=== PATIENT | female | born 1950 | race Caucasian/White ===

== ENCOUNTER 2018-07-13 07:04 | Inpatient (IN) ==
--- NOTE | 2018-07-13 07:15 | Emergency Department Note ---
Disposition Clinical Impression: Endometrial cancer Sepsis Qualifiers: Sepsis type: sepsis due to unspecified organism Qualified Code(s): A41.9 - Sepsis, unspecified organism UTI (urinary tract infection) Qualifiers: Urinary tract infection type: acute cystitis Hematuria presence: without h ematuria Qualified Code(s): N30.00 - Acute cystitis without hematuria Disposition: Admitted As Inpatient Condition: Fair Referrals: Ant Shaffer DO [Primary Care Provider] - Forms: ED Satisfaction Letter Time of Disposition: 09:45 General Adult HPI - General Chief complaint: ED Shortness of Breath/Dyspnea Stated complaint: FRENCH,Fever,UTI,CA pt Time Seen by Provider: 07/13/18 07:14 Source: patient Mode of arrival: wheelchair Limitations: no limitations Nursing Notes Reviewed: Yes Vital Signs Reviewed: Yes - History of Present Illness HPI Narrative: Patient is a 67-year-old female presenting with fever, difficulty breathing and abdominal pain. Patient is currently undergoing chemotherapy with history of radiation therapy for endometrial cancer at [facility], currently being seen as well per Dr. Farmer at [facility]. Over the past 2 days, patient has been having subjective fevers with chills, overnight developed difficulty breathing, seeing as though she felt as if she cannot take a deep breath, no recent cough. She does not wear oxygen at home, no history of COPD or lung disease. Most recent chemotherapy was Friday. Also has been having cramping suprapubic abdominal pain that is intermittent, no exacerbating or alleviating factors. Does have nausea with diarrhea, chronic with treatment and unchanged, she is currently on Zofran for this. Also notes a few days of urinary frequency without dysuria. No hematochezia, vomiting, hematuria, chest pain. Pain Scale: 6 - Related Data Home Medications Medication Instructions Recorded Confirmed Aspirin [Lo-Dose Aspirin EC] 81 mg PO DAILY 08/28/17 06/11/18 Rosuvastatin Calcium [Crestor] 5 mg PO DAILY 08/28/17 06/11/18 Venlafaxine [Effexor] 75 mg PO DAILY 08/28/17 06/11/18 Calcium Carbonate [Calcium] 600 mg PO DAILY 11/03/17 06/11/18 Cholecalciferol (D-3) [Vitamin D] 1,000 unit PO DAILY 11/03/17 06/11/18 Aripiprazole [Abilify] 5 mg PO DAILY 03/27/18 06/11/18 Omeprazole [PriLOSEC] 20 mg PO DAILY 06/11/18 06/11/18 Previous Rx's Medication Instructions Recorded Ibuprofen [Motrin] 600 mg PO Q6HR PRN #40 tab 11/03/17 Ondansetron [Zofran] 8 mg PO Q8HR PRN #60 tablet 04/09/18 Loperamide [Imodium] 2 - 4 mg PO BID PRN #60 capsule 04/15/18 Allergies Allergy/AdvReac Type Severity Reaction Status Date / Time No Known Allergies Allergy Verified 06/11/18 10:05 All systems ED: reviewed and negative except as stated. Review of Systems: As Per HPI Constitutional: Reports: fever, chills ENT ED: Denies: congestion Cardiovascular: Reports: chest pain. Denies: palpitations, dyspnea on exertion, syncope Respiratory: Reports: dyspnea. Denies: cough, wheezes, hemoptysis, sputum production Gastrointestinal: Reports: abdominal pain, nausea, diarrhea. Denies: vomiting, hematemesis, melena, hematochezia Genitourinary: Reports: urgency, frequency. Denies: dysuria, hematuria Musculoskeletal: Denies: back pain Integumentary: Denies: rash Neurological: Denies: headache, weakness, confusion Endocrine: Reports: fatigue Past Medical History - Past Medical History Attestation: Yes The following information was validated with the patient. Source: patient Medical history: Reports: cancer (Endometrial cancer) Psychiatric history: Reports: no psych history - Social History Smoking Status: Never smoker Smokeless Tobacco Status: No Alcohol use: Reports: none Drug use: Reports: none Physical Exam - General Limitations: no limitations General appearance: alert, in no apparent distress - Head Head exam: atraumatic, normocephalic, normal inspection - Eye Eye exam: Present: normal appearance, PERRL, EOMI - ENT ENT exam: normal oropharynx, mucous membranes dry - Neck Neck exam: Present: normal inspection - Chest Chest inspection: Present: normal inspection, symmetric chest wall rise, other (port placement to the right chest, appears well without erythema) - Respiratory Respiratory exam: Present: normal lung sounds bilaterally - Cardiovascular Cardiovascular exam: Present: normal rhythm, tachycardia - Abdominal Exam Abdominal exam: Present: soft, tenderness (Tenderness throughout the suprapubic region, without guarding or rebound, no rigidity) - Extremities Exam Extremities exam: Present: normal inspection, full ROM, normal capillary refill. Absent: tenderness, pedal edema - Expanded Lower Extremity Exam Neurovascular/Tendon exam: Absent: motor deficit, sensory deficit - Neurological Exam Neurological exam: Present: alert, oriented X3 - Psychiatric Psychiatric exam: Present: normal affect, normal mood - Skin Skin exam: Present: warm, dry, intact Course Vital Signs Temperature 99.0 F 07/13/18 07:08 Pulse Rate 115 07/13/18 07:08 Respiratory Rate 22 07/13/18 07:08 Blood Pressure 167/96 07/13/18 07:08 O2 Sat by Pulse Oximetry 97 07/13/18 07:08 Temperature 99.0 F 07/13/18 07:08 Pulse Rate 101 07/13/18 09:37 Respiratory Rate 16 07/13/18 09:37 Blood Pressure 135/75 07/13/18 09:37 O2 Sat by Pulse Oximetry 99 07/13/18 09:37 Oxygen Delivery Oxygen Delivery Room Air Medical Decision Making - [facility] Narrative Medical decision making narrative: Patient is a 67-year-old female presenting with fever and difficulty breathing with abdominal pain. On examination, patient is tachycardic, afebrile and. She does appear unwell, does have history of current chemotherapy for endometrial cancer. To rule out intra-abdominal etiology as well as cardiac and pulmonary etiology, chest x-ray, CBC, BMP, troponin, EKG, abdominal imaging was performed as well as urinalysis. Chest x-ray shows stable cardiopulmonary without sign of infection, CT shows no acute intra-abdominal findings. CBC does show the patient to be leukopenic at 2.6 without neutropenia, most recent was on 07/06/2018 and was 3.6. Lactic acid slightly elevated at 2.5. Blood cultures have been obtained at 726. Given this finding as well as initial vitals, patient was SIRS, patient was started on 1 L normal saline bolus. Patient is currently stable. Resting comfortably on the bed. BMP is relatively unremarkable, troponin is negative with no acute ischemic changes found on EKG. Urinalysis does find suggestion of urinary tract infection, patient was started on Rocephin at 907. Urine culture was ordered. Influenza ordered as well. Given the patient is septic with source of urinary tract infection, patient will be admitted for further evaluation and treatment. A total of 2 L normal saline will be given to the patient. Patient agrees with disposition of admission at this time. Will call hospitalist for admission. - Medical Records Medical records reviewed: Yes I reviewed the patient's medical records. - Lab Data Lab results reviewed: Yes I reviewed the patient's lab results. Result diagrams: 07/13/18 07:43 07/13/18 07:43 Lab Results 07/13/18 07/13/18 07/13/18 Range/Units 07:43 07:43 07:43 WBC 2.6 L (4.3-11.1) K/mcL RBC 3.92 (3.82-4.97) M/mcL Hgb 12.0 (11.5-15.4) g/dL Hct 35.7 (35.3-44.9) % MCV 91.1 (83.0-100.0) fL MCH 30.6 (28.0-33.3) pg MCHC 33.6 (31.6-35.5) g/dL RDW 13.5 (11.5-14.5) % Plt Count 141 (140-400) K/mcL MPV 10.6 (9.4-12.4) fL Immature Gran % 0.4 (0-4) % Seg Neutrophils % 80.1 % Lymphocytes % 10.3 % Monocytes % 2.3 % Eosinophils % 6.5 % Basophils % 0.4 % Neutrophils # 2.1 (1.6-8.9) K/mcL Lymphocytes # 0.3 L (0.6-4.6) K/mcL Monocytes # 0.1 (0.0-1.3) K/mcL Eosinophils # 0.2 (0.0-0.6) K/mcL Basophils # 0.0 (0.0-0.2) K/mcL Sodium 134 L (136-145) mEq/L Potassium 4.1 (3.5-5.1) mEq/L Chloride 97 L (98-107) mEq/L Carbon Dioxide 24 (23-29) mEq/L BUN 18 (8-23) mg/dL Creatinine 0.71 (0.60-1.20) mg/dL Est GFR ( Amer) > 60 (> 60) Est GFR (Non-Af Amer) > 60 (> 60) BUN/Creatinine Ratio 25 (6-26) Glucose 211 H (70-105) mg/dL Calculated Osmolality 286 (280-300) Lactic Acid 2.5 H (0.5-2.2) mmol/L Calcium 9.6 (8.6-10.3) mg/dL Total Bilirubin 0.9 (0.3-1.0) mg/dL Direct Bilirubin 0.1 (0.0-0.2) mg/dL Indirect Bilirubin 0.8 (0.0-1.2) mg/dL AST 39 (13-39) Units/L ALT 58 H (7-52) Units/L Alkaline Phosphatase 61 (34-104) Units/L Troponin I < 0.03 (< 0.04) ng/mL Serum Total Protein 6.6 (6.4-8.9) g/dL Albumin 4.1 (3.5-5.7) g/dL Globulin 2.5 (2.4-3.5) g/dL Albumin/Globulin Ratio 1.6 (1.1-2.2) Urine Color (Yellow) Urine Clarity (Clear) Urine pH (5.0-8.0) pH Units Ur Specific [place] (1.010-1.025) Urine Protein (Neg-Trace) mg/dL Urine Glucose (UA) (Normal) mg/dL Urine Ketones (Negative) mg/dL Urine Blood (Negative) Urine Nitrite (Negative) Urine Bilirubin (Negative) Urine Urobilinogen (Normal) mg/dL Ur Leukocyte Esterase (Negative) Urine Microscopic RBC (0-3) per hpf Urine Microscopic WBC (0-3) per hpf Ur Squamous Epith Cells (None-Few) per lpf Urine Bacteria (None-Few) per hpf Hyaline Casts (None-Few) per lpf 07/13/18 Range/Units 08:48 WBC (4.3-11.1) K/mcL RBC (3.82-4.97) M/mcL Hgb (11.5-15.4) g/dL Hct (35.3-44.9) % MCV (83.0-100.0) fL MCH (28.0-33.3) pg MCHC (31.6-35.5) g/dL RDW (11.5-14.5) % Plt Count (140-400) K/mcL MPV (9.4-12.4) fL Immature Gran % (0-4) % Seg Neutrophils % % Lymphocytes % % Monocytes % % Eosinophils % % Basophils % % Neutrophils # (1.6-8.9) K/mcL Lymphocytes # (0.6-4.6) K/mcL Monocytes # (0.0-1.3) K/mcL Eosinophils # (0.0-0.6) K/mcL Basophils # (0.0-0.2) K/mcL Sodium (136-145) mEq/L Potassium (3.5-5.1) mEq/L Chloride (98-107) mEq/L Carbon Dioxide (23-29) mEq/L BUN (8-23) mg/dL Creatinine (0.60-1.20) mg/dL Est GFR ( Amer) (> 60) Est GFR (Non-Af Amer) (> 60) BUN/Creatinine Ratio (6-26) Glucose (70-105) mg/dL Calculated Osmolality (280-300) Lactic Acid (0.5-2.2) mmol/L Calcium (8.6-10.3) mg/dL Total Bilirubin (0.3-1.0) mg/dL Direct Bilirubin (0.0-0.2) mg/dL Indirect Bilirubin (0.0-1.2) mg/dL AST (13-39) Units/L ALT (7-52) Units/L Alkaline Phosphatase (34-104) Units/L Troponin I (< 0.04) ng/mL Serum Total Protein (6.4-8.9) g/dL Albumin (3.5-5.7) g/dL Globulin (2.4-3.5) g/dL Albumin/Globulin Ratio (1.1-2.2) Urine Color Yellow (Yellow) Urine Clarity Cloudy A (Clear) Urine pH 5.5 (5.0-8.0) pH Units Ur Specific [place] 1.023 (1.010-1.025) Urine Protein 30 H (Neg-Trace) mg/dL Urine Glucose (UA) Normal (Normal) mg/dL Urine Ketones Negative (Negative) mg/dL Urine Blood Trace H (Negative) Urine Nitrite Negative (Negative) Urine Bilirubin Negative (Negative) Urine Urobilinogen Normal (Normal) mg/dL Ur Leukocyte Esterase Moderate H (Negative) Urine Microscopic RBC 3-5 H (0-3) per hpf Urine Microscopic WBC TNTC H (0-3) per hpf Ur Squamous Epith Cells None Seen (None-Few) per lpf Urine Bacteria Many H (None-Few) per hpf Hyaline Casts None Seen (None-Few) per lpf - Radiology Data Radiology results reviewed: Yes I reviewed the patient's radiology results. Chest X-Ray 07/13/18 07:25 IMPRESSION: 1. Right chest port. 2. No acute cardiopulmonary abnormality. D/ / Cruz Ferrer MD / Cruz Ferrer MD Interpreting Provider: Cruz Ferrer MD Abdomen/Pelvis CT 07/13/18 07:26 IMPRESSION: 1. No acute findings within the abdomen. 2. No acute findings within the pelvis. 3. Mild hepatic steatosis. 4. Punctate nonobstructing stone involving the upper pole of the left kidney. 5. Scattered colonic diverticula. 6. Small midline ventral hernia containing fat. D/ / 07/13/2018 08:16:50 Matthew Call MD / scott Interpreting Provider: Matthew Call MD - EKG Data EKG #1 EKG attestation: Yes I reviewed and interpreted this EKG. EKG results narrative: EKG performed at 726 ventricular rate of 110, review the rhythm, left axis deviation, no ST segment elevation, no depression, nonspecific T-wave changes, Q-wave in lead V2 appears unchanged from prior EKG on August 2017 S.B.A.[facility]. - S.B.A.R. Situation: Demographics, MOA Background: Presenting Complaint, Relevant PMH, Meds, & Allergies Assessment: Vital Signs, Course and respsone to treatment, Exam Concerns, Patient/Family Expectation, Pertinant Lab Results, Outstanding Labs Recommendation: Barrier(s) to disposition, Recommendation based on pending studies, treatments, or consults S.B.A.R. Report Given to: Dr. Tate Serrato Repor Time: 09:44 (accepted)
[2018-07-13] MEDS ORDERED: Ondansetron 4 MG/2 ML VIAL IVP ONE ×2 (07:27→08:29)
[2018-07-13] MEDS ORDERED: 0.9 % Sodium Chloride 1,000 ML IVC ONE ×2 (07:27→09:07)
[2018-07-13 07:59] LABS: Basophils % 0.4 %; Eosinophils # 0.2 K/mcL (0.0-0.6); Eosinophils % 6.5 %; Hematocrit 35.7 % (35.3-44.9); Immature Granulocytes % 0.4 % (0-4); Lymphocytes # 0.3 K/mcL (0.6-4.6); Lymphocytes % 10.3 %; Mean Corpuscular HGB Conc 33.6 g/dL (31.6-35.5); Mean Corpuscular Hemoglobin 30.6 pg (28.0-33.3); Mean Corpuscular Volume 91.1 fL (83.0-100.0); Mean Platelet Volume 10.6 fL (9.4-12.4); Monocytes # 0.1 K/mcL (0.0-1.3); Monocytes % 2.3 %; Neutrophils # 2.1 K/mcL (1.6-8.9); Platelet Count 141 K/mcL (140-400); Red Blood Count 3.92 M/mcL (3.82-4.97); Red Cell Distribution Width 13.5 % (11.5-14.5); Segmented Neutrophils % 80.1 %
--- NOTE | 2018-07-13 08:31 | Emergency Department Note ---
Disposition Clinical Impression: Endometrial cancer Sepsis Qualifiers: Sepsis type: sepsis due to unspecified organism Qualified Code(s): A41.9 - Sepsis, unspecified organism UTI (urinary tract infection) Qualifiers: Urinary tract infection type: acute cystitis Hematuria presence: without h ematuria Qualified Code(s): N30.00 - Acute cystitis without hematuria Disposition: Admitted As Inpatient Condition: Fair Referrals: Ant Shaffer DO [Primary Care Provider] - Forms: ED Satisfaction Letter General Adult HPI - General Chief complaint: ED Shortness of Breath/Dyspnea Stated complaint: FRENCH,Fever,UTI,CA pt Time Seen by Provider: 07/13/18 07:14 Source: patient Mode of arrival: wheelchair Limitations: no limitations - History of Present Illness Pain Scale: 6 - Related Data Home Medications Medication Instructions Recorded Confirmed Aspirin [Lo-Dose Aspirin EC] 81 mg PO DAILY 08/28/17 06/11/18 Rosuvastatin Calcium [Crestor] 5 mg PO DAILY 08/28/17 06/11/18 Venlafaxine [Effexor] 75 mg PO DAILY 08/28/17 06/11/18 Calcium Carbonate [Calcium] 600 mg PO DAILY 11/03/17 06/11/18 Cholecalciferol (D-3) [Vitamin D] 1,000 unit PO DAILY 11/03/17 06/11/18 Aripiprazole [Abilify] 5 mg PO DAILY 03/27/18 06/11/18 Omeprazole [PriLOSEC] 20 mg PO DAILY 06/11/18 06/11/18 Previous Rx's Medication Instructions Recorded Ibuprofen [Motrin] 600 mg PO Q6HR PRN #40 tab 11/03/17 Ondansetron [Zofran] 8 mg PO Q8HR PRN #60 tablet 04/09/18 Loperamide [Imodium] 2 - 4 mg PO BID PRN #60 capsule 04/15/18 Allergies Allergy/AdvReac Type Severity Reaction Status Date / Time No Known Allergies Allergy Verified 06/11/18 10:05 Constitutional: Reports: fever, chills ENT ED: Denies: congestion Cardiovascular: Reports: chest pain. Denies: palpitations, dyspnea on exertion, syncope Respiratory: Reports: dyspnea. Denies: cough, wheezes, hemoptysis, sputum production Gastrointestinal: Reports: abdominal pain, nausea, diarrhea. Denies: vomiting, hematemesis, melena, hematochezia Genitourinary: Reports: urgency, frequency. Denies: dysuria, hematuria Musculoskeletal: Denies: back pain Integumentary: Denies: rash Neurological: Denies: headache, weakness, confusion Endocrine: Reports: fatigue Past Medical History - Past Medical History Medical history: Reports: cancer (Endometrial cancer) Psychiatric history: Reports: no psych history - Social History Smoking Status: Never smoker Smokeless Tobacco Status: No Alcohol use: Reports: none Drug use: Reports: none Physical Exam - General Limitations: no limitations General appearance: alert, in no apparent distress Course Vital Signs Temperature 99.0 F 07/13/18 07:08 Pulse Rate 115 07/13/18 07:08 Respiratory Rate 22 07/13/18 07:08 Blood Pressure 167/96 07/13/18 07:08 O2 Sat by Pulse Oximetry 97 07/13/18 07:08 Temperature 99.0 F 07/13/18 07:08 Pulse Rate 101 07/13/18 09:37 Respiratory Rate 16 07/13/18 09:37 Blood Pressure 135/75 07/13/18 09:37 O2 Sat by Pulse Oximetry 99 07/13/18 09:37 Oxygen Delivery Oxygen Delivery Room Air Medical Decision Making - MDM Narrative Medical decision making narrative: Patient did have evidence of a urinary tract infection. We started her on IV antibiotics. IV fluids. Patient will be admitted. - Medical Records Medical records reviewed: Yes I reviewed the patient's medical records. - Lab Data Lab results reviewed: Yes I reviewed the patient's lab results. Result diagrams: 07/13/18 07:43 07/13/18 07:43 Lab Results 07/13/18 07/13/18 07/13/18 Range/Units 07:43 07:43 07:43 WBC 2.6 L (4.3-11.1) K/mcL RBC 3.92 (3.82-4.97) M/mcL Hgb 12.0 (11.5-15.4) g/dL Hct 35.7 (35.3-44.9) % MCV 91.1 (83.0-100.0) fL MCH 30.6 (28.0-33.3) pg MCHC 33.6 (31.6-35.5) g/dL RDW 13.5 (11.5-14.5) % Plt Count 141 (140-400) K/mcL MPV 10.6 (9.4-12.4) fL Immature Gran % 0.4 (0-4) % Seg Neutrophils % 80.1 % Lymphocytes % 10.3 % Monocytes % 2.3 % Eosinophils % 6.5 % Basophils % 0.4 % Neutrophils # 2.1 (1.6-8.9) K/mcL Lymphocytes # 0.3 L (0.6-4.6) K/mcL Monocytes # 0.1 (0.0-1.3) K/mcL Eosinophils # 0.2 (0.0-0.6) K/mcL Basophils # 0.0 (0.0-0.2) K/mcL Sodium 134 L (136-145) mEq/L Potassium 4.1 (3.5-5.1) mEq/L Chloride 97 L (98-107) mEq/L Carbon Dioxide 24 (23-29) mEq/L BUN 18 (8-23) mg/dL Creatinine 0.71 (0.60-1.20) mg/dL Est GFR ( Amer) > 60 (> 60) Est GFR (Non-Af Amer) > 60 (> 60) BUN/Creatinine Ratio 25 (6-26) Glucose 211 H (70-105) mg/dL Calculated Osmolality 286 (280-300) Lactic Acid 2.5 H (0.5-2.2) mmol/L Calcium 9.6 (8.6-10.3) mg/dL Total Bilirubin 0.9 (0.3-1.0) mg/dL Direct Bilirubin 0.1 (0.0-0.2) mg/dL Indirect Bilirubin 0.8 (0.0-1.2) mg/dL AST 39 (13-39) Units/L ALT 58 H (7-52) Units/L Alkaline Phosphatase 61 (34-104) Units/L Troponin I < 0.03 (< 0.04) ng/mL Serum Total Protein 6.6 (6.4-8.9) g/dL Albumin 4.1 (3.5-5.7) g/dL Globulin 2.5 (2.4-3.5) g/dL Albumin/Globulin Ratio 1.6 (1.1-2.2) Urine Color (Yellow) Urine Clarity (Clear) Urine pH (5.0-8.0) pH Units Ur Specific [place] (1.010-1.025) Urine Protein (Neg-Trace) mg/dL Urine Glucose (UA) (Normal) mg/dL Urine Ketones (Negative) mg/dL Urine Blood (Negative) Urine Nitrite (Negative) Urine Bilirubin (Negative) Urine Urobilinogen (Normal) mg/dL Ur Leukocyte Esterase (Negative) Urine Microscopic RBC (0-3) per hpf Urine Microscopic WBC (0-3) per hpf Ur Squamous Epith Cells (None-Few) per lpf Urine Bacteria (None-Few) per hpf Hyaline Casts (None-Few) per lpf 07/13/18 Range/Units 08:48 WBC (4.3-11.1) K/mcL RBC (3.82-4.97) M/mcL Hgb (11.5-15.4) g/dL Hct (35.3-44.9) % MCV (83.0-100.0) fL MCH (28.0-33.3) pg MCHC (31.6-35.5) g/dL RDW (11.5-14.5) % Plt Count (140-400) K/mcL MPV (9.4-12.4) fL Immature Gran % (0-4) % Seg Neutrophils % % Lymphocytes % % Monocytes % % Eosinophils % % Basophils % % Neutrophils # (1.6-8.9) K/mcL Lymphocytes # (0.6-4.6) K/mcL Monocytes # (0.0-1.3) K/mcL Eosinophils # (0.0-0.6) K/mcL Basophils # (0.0-0.2) K/mcL Sodium (136-145) mEq/L Potassium (3.5-5.1) mEq/L Chloride (98-107) mEq/L Carbon Dioxide (23-29) mEq/L BUN (8-23) mg/dL Creatinine (0.60-1.20) mg/dL Est GFR ( Amer) (> 60) Est GFR (Non-Af Amer) (> 60) BUN/Creatinine Ratio (6-26) Glucose (70-105) mg/dL Calculated Osmolality (280-300) Lactic Acid (0.5-2.2) mmol/L Calcium (8.6-10.3) mg/dL Total Bilirubin (0.3-1.0) mg/dL Direct Bilirubin (0.0-0.2) mg/dL Indirect Bilirubin (0.0-1.2) mg/dL AST (13-39) Units/L ALT (7-52) Units/L Alkaline Phosphatase (34-104) Units/L Troponin I (< 0.04) ng/mL Serum Total Protein (6.4-8.9) g/dL Albumin (3.5-5.7) g/dL Globulin (2.4-3.5) g/dL Albumin/Globulin Ratio (1.1-2.2) Urine Color Yellow (Yellow) Urine Clarity Cloudy A (Clear) Urine pH 5.5 (5.0-8.0) pH Units Ur Specific [place] 1.023 (1.010-1.025) Urine Protein 30 H (Neg-Trace) mg/dL Urine Glucose (UA) Normal (Normal) mg/dL Urine Ketones Negative (Negative) mg/dL Urine Blood Trace H (Negative) Urine Nitrite Negative (Negative) Urine Bilirubin Negative (Negative) Urine Urobilinogen Normal (Normal) mg/dL Ur Leukocyte Esterase Moderate H (Negative) Urine Microscopic RBC 3-5 H (0-3) per hpf Urine Microscopic WBC TNTC H (0-3) per hpf Ur Squamous Epith Cells None Seen (None-Few) per lpf Urine Bacteria Many H (None-Few) per hpf Hyaline Casts None Seen (None-Few) per lpf - Radiology Data Radiology results reviewed: Yes I reviewed the patient's radiology results. Attestation Statement - Attestation Attestation: I examined this patient and my medical decision-making was reviewed with the Resident Physician. I agree with the documented findings, disposition and treatment plan as described except to the extent set forth below. 67 yo F presents to the ER for nausea, lower abdominal pain, shortness of breath. Patient has endometrial cancer. She is undergoing chemotherapy and radiation to the [facility] in [place]. Her last treatment was Friday. She does admit to some diarrhea. No vomiting. Positive nausea. She is concerned she may have a UTI she has had some dysuria and frequency. She is also complaining of suprapubic pain. Subjective fevers and chills at home. CT abdomen and pelvis today is negative. Chest x-ray negative.
[2018-07-13 08:58] LABS: Bilirubin,Urine Negative (Negative); Blood,Urine Trace (Negative); Clarity,Urine Cloudy (Clear); Color,Urine Yellow (Yellow); Glucose,Urine (UA) Normal (Normal); Ketones,Urine Negative (Negative); Leukocyte Esterase,Urine Moderate (Negative); Nitrite,Urine Negative (Negative); PH,Urine 5.5 pH Units (5.0-8.0); Protein,Urine 30 mg/dL (Neg-Trace); Specific Gravity,Urine 1.023 (1.010-1.025); Urobilinogen,Urine Normal (Normal)
[2018-07-13 09:00] LABS: Bacteria,Urine Many per hpf (None-Few); Hyaline Casts,Urine None Seen per lpf (None-Few); Squamous Epithelial Cell,Urine None Seen per lpf (None-Few); WBC,Urine TNTC per hpf (0-3)
[2018-07-13] MEDS ORDERED: cefTRIAXone 1,000 MG in Water for inj. (sterile) 20 ML 10 ML IVP ONE ×2 (09:06→10:27)
[2018-07-13 09:10] LABS: Troponin I < 0.03 ng/mL (< 0.04)
[2018-07-13 09:20] LABS: Alanine Aminotransferase 58 Units/L (7-52); Albumin 4.1 g/dL (3.5-5.7); Albumin/Globulin Ratio 1.6 (1.1-2.2); Alkaline Phosphatase 61 Units/L (34-104); Aspartate Amino Transferase 39 Units/L (13-39); BUN/Creatinine Ratio 25 (6-26); Bilirubin,Direct 0.1 mg/dL (0.0-0.2); Bilirubin,Indirect 0.8 mg/dL (0.0-1.2); Bilirubin,Total 0.9 mg/dL (0.3-1.0); Blood Urea Nitrogen 18 mg/dL (8-23); Calcium 9.6 mg/dL (8.6-10.3); Carbon Dioxide 24 mEq/L (23-29); Chloride 97 mEq/L (98-107); Globulin 2.5 g/dL (2.4-3.5); Glucose 211 mg/dL (70-105); Osmolality,Calculated 286 (280-300); Potassium 4.1 mEq/L (3.5-5.1); Sodium 134 mEq/L (136-145); Total Protein 6.6 g/dL (6.4-8.9); eGFR For Non-African Americans > 60 (> 60)
[2018-07-13] MEDS ORDERED: *HR* OxyCODONE/APAP 5/325 TABLET PO ONE (09:39)
[2018-07-13] MEDS ORDERED: Acetaminophen 325 MG TABLET PO PRN (10:24)
[2018-07-13] MEDS ORDERED: Ondansetron 4 MG/2 ML VIAL IVP PRN (10:24)
[2018-07-13] MEDS ORDERED: Naloxone 0.4 MG/ML INJ IVP PRN (10:24)
--- NOTE | 2018-07-13 10:34 | Internal Med History&Physical ---
Date of Encounter: 07/13/18 Time of Encounter: 09:30 Internal Medicine - H&P: HPI Chief complaint: Dysuria Admitted From: Home Plans for Post Hospital Care: Home History of present illness: Ms. Escoto is a 67 year old female present to ER for generalized weakness, suprapubic abdominal pain, and dysuria. Past medical history is significant for endometrial cancer after hysterectomy, on chemotherapy, finished radiation t herapy, S/P bariatric surgery. Patient feels generalized weakness, mild shortness of breath, suprapubic abdominal pain started from yesterday. Patient denies cough. Patient has mild shortness of breath. Patient has low fever with urination discomfort. Patient has mild nausea but no vomiting. Patient denies flank pain. In the emergency room, patient was found tachycardia, low WBC. Chest x-ray unremarkable. Abdominal CT unremarkable. Urinalysis shows UTI. Patient was admitted as UTI with urosepsis. Past Med Surg Social Fam HX - Past Medical History Medical history: cancer (Endometrial cancer) Additional medical history: Endometrial Cancer Psychiatric history: no psych history - Social History Smoking Status: Never smoker Smokeless Tobacco Status: No Alcohol use: none Drug use: none - Family History Mother History Unknown: Yes Internal Medicine - H&P: Meds Aspirin [Lo-Dose Aspirin EC] 81 mg PO DAILY 08/28/17 [History] Rosuvastatin Calcium [Crestor] 5 mg PO DAILY 08/28/17 [History] Venlafaxine [Effexor] 75 mg PO DAILY 08/28/17 [History] Calcium Carbonate [Calcium] 600 mg PO DAILY 11/03/17 [History] Cholecalciferol (D-3) [Vitamin D] 1,000 unit PO DAILY 11/03/17 [History] Ibuprofen [Motrin] 600 mg PO Q6HR PRN #40 tab 11/03/17 [Rx] Aripiprazole [Abilify] 5 mg PO DAILY 03/27/18 [History] Ondansetron [Zofran] 8 mg PO Q8HR PRN #60 tablet 04/09/18 [Rx] Loperamide [Imodium] 2 - 4 mg PO BID PRN #60 capsule 04/15/18 [Rx] Omeprazole [PriLOSEC] 20 mg PO DAILY 06/11/18 [History] Allergy/AdvReac Type Severity Reaction Status Date / Time No Known Allergies Allergy Verified 06/11/18 10:05 All Systems PM: A 10-system review of systems was performed and is negative for pertinent findings except as documented above in the HPI. - Constitutional Vitals: Temp Pulse Resp BP Pulse Ox 99.0 F 101 16 135/75 99 07/13/18 07:08 07/13/18 09:37 07/13/18 09:37 07/13/18 09:37 07/13/18 09:37 Exam: Pt is AAO x 3, in NAD HEENT: NC/AT, PERRL Neck: Supple, no JVD, no LAD Lungs: CTA b/l Heart: S1S2, RRR Abd: Soft, mild tenderness on suprapubic area, without rebound or guarding, BS present Ext: ROM wnl, no pedal edema Neuro: No focal deficit Internal Med - H&P Results - Labs CBC & Chem 7: 07/13/18 07:43 07/13/18 07:43 Labs: Short CBC 07/13/18 Range/Units 07:43 WBC 2.6 L (4.3-11.1) K/mcL Hgb 12.0 (11.5-15.4) g/dL Hct 35.7 (35.3-44.9) % Plt Count 141 (140-400) K/mcL Neutrophils # 2.1 (1.6-8.9) K/mcL BMP 07/13/18 07:43 Sodium 134 L Potassium 4.1 Chloride 97 L Carbon Dioxide 24 BUN 18 Creatinine 0.71 Glucose 211 H Calcium 9.6 Cardiac Enzymes 07/13/18 Range/Units 07:43 Troponin I < 0.03 (< 0.04) ng/mL Liver Function 07/13/18 Range/Units 07:43 Total Bilirubin 0.9 (0.3-1.0) mg/dL Direct Bilirubin 0.1 (0.0-0.2) mg/dL AST 39 (13-39) Units/L ALT 58 H (7-52) Units/L Alkaline Phosphatase 61 (34-104) Units/L Albumin 4.1 (3.5-5.7) g/dL Urine 07/13/18 Range/Units 08:48 Urine Color Yellow (Yellow) Urine Clarity Cloudy A (Clear) Urine pH 5.5 (5.0-8.0) pH Units Ur Specific [place] 1.023 (1.010-1.025) Urine Protein 30 H (Neg-Trace) mg/dL Urine Glucose (UA) Normal (Normal) mg/dL - Impressions ITS Impressions Chest X-Ray 07/13/18 07:25 IMPRESSION: 1. Right chest port. 2. No acute cardiopulmonary abnormality. D/ / Cruz Ferrer MD / Cruz Ferrer MD Interpreting Provider: Cruz Ferrer MD Abdomen/Pelvis CT 07/13/18 07:26 IMPRESSION: 1. No acute findings within the abdomen. 2. No acute findings within the pelvis. 3. Mild hepatic steatosis. 4. Punctate nonobstructing stone involving the upper pole of the left kidney. 5. Scattered colonic diverticula. 6. Small midline ventral hernia containing fat. D/ / 07/13/2018 08:16:50 Matthew Call MD / scott Interpreting Provider: Matthew Call MD - Assessment and Plan (1) Leukocytopenia Current Visit: Yes Status: Acute Assessment and plan: WBC 2.6. No neutropenia. Most likely due to recent chemotherapy. Continue closely follow-up CBC. Qualifiers: Leukopenia type: unspecified Qualified Code(s): D72.819 - Decreased white blood cell count, unspecified (2) DVT prophylaxis Current Visit: Yes Status: Acute Assessment and plan: Heparin subcutaneously (3) Morbid obesity Current Visit: Yes Status: Acute Assessment and plan: Patient had bariatric surgery with gastric band. Continue lifestyle modifica tion. Will consult shoveler. (4) Endometrial cancer Current Visit: Yes Status: Acute Assessment and plan: Patient had hysterectomy. Patient has finished radiation therapy. Patient is on chemotherapy, last chemotherapy was 5 days ago. Next scheduled chemotherapy is on 07/29/18. Continue follow-up with oncology as outpatient (5) Sepsis Current Visit: Yes Status: Acute Assessment and plan: Patient to meet sepsis criteria with tachycardia, leukopenia, and fever. Source of infection most likely UTI - IV fluid started in the emergency room, will continue - Initial lactate 2.5, will repeat in 6 hours - Continue Rocephin for UTI - Follow up urine and blood culture Qualifiers: Sepsis type: Escherichia coli Qualified Code(s): A41.51 - Sepsis due to Escherichia coli [E. coli] (6) UTI (urinary tract infection) Current Visit: Yes Status: Acute Assessment and plan: Management as above. Abdominal CT has been done, no signs of obstruction. Qualifiers: Urinary tract infection type: acute cystitis Hematuria presence: without hematuria Qualified Code(s): N30.00 - Acute cystitis without hematuria - Time Spent With Patient Total time spent is greater than 50% in coordination of care (as documented) at patient's floor/unit and/or counseling patient: 40 minutes Greater than 35 minutes
[2018-07-13] MEDS: 0.9 % Sodium Chloride 1,000 ML IVC SCH (13:04)
--- NOTE | 2018-07-13 15:38 | Event Note ---
Date of Encounter: 07/13/18 Time of Encounter: 15:00 Pt reported rashes on scalp, no itching, mild tender. Examined pt at bedside, diffused small pink rash on scalp, few of them has white spot on it. Pt report the rashes started from yesterday, clearly before the abx use. D/W dematology Dr Cervantes on phone, recommend place pt on Nizoral shampo and Triamcinolone cream. Recommend f/u with Dermatology after discharge.
[2018-07-13] MEDS: *HR* Heparin 5,000 UNIT/ML VIAL SQ SCH (17:01)
[2018-07-13] MEDS: *HR* OxyCODONE/APAP 5/325 TABLET PO PRN (19:22)
[2018-07-13] MEDS: Ketoconazole Shampoo 120 ML BOTTLE TP SCH (21:34)
[2018-07-13] MEDS: Triamcinolone Acet 0.1% CRM 15 GM TUBE TP SCH (21:35)
[2018-07-14] MEDS: 0.9 % Sodium Chloride 1,000 ML IVC SCH ×2 (00:36→00:37)
[2018-07-14] MEDS: *HR* OxyCODONE/APAP 5/325 TABLET PO PRN (03:36)
[2018-07-14 03:47] LABS: Basophils % 0.8 %; Mean Platelet Volume 10.3 fL (9.4-12.4); Monocytes % 5.6 %; Red Cell Distribution Width 13.4 % (11.5-14.5)
[2018-07-14 03:48] LABS: Eosinophils # 0.2 K/mcL (0.0-0.6); Eosinophils % 17.5 %; Hemoglobin 10.2 g/dL (11.5-15.4); Immature Granulocytes % 0.8 % (0-4); Lymphocytes # 0.3 K/mcL (0.6-4.6); Mean Corpuscular Hemoglobin 31.1 pg (28.0-33.3); Mean Corpuscular Volume 91.5 fL (83.0-100.0); Monocytes # 0.1 K/mcL (0.0-1.3); Neutrophils # 0.7 K/mcL (1.6-8.9); Platelet Count 114 K/mcL (140-400); Red Blood Count 3.28 M/mcL (3.82-4.97); Segmented Neutrophils % 52.3 %
[2018-07-14 03:55] LABS: BUN/Creatinine Ratio 21 (6-26); Blood Urea Nitrogen 12 mg/dL (8-23); Calcium 8.5 mg/dL (8.6-10.3); Carbon Dioxide 24 mEq/L (23-29); Chloride 101 mEq/L (98-107); Glucose 211 mg/dL (70-105); Magnesium 1.6 mg/dL (1.6-2.6); Osmolality,Calculated 284 (280-300); Potassium 3.9 mEq/L (3.5-5.1); Sodium 134 mEq/L (136-145); eGFR For Non-African Americans > 60 (> 60)
[2018-07-14 04:20] LABS: Platelet Estimate Normal (Normal)
[2018-07-14] MEDS: *HR* Heparin 5,000 UNIT/ML VIAL SQ SCH ×2 (06:08→17:25)
[2018-07-14] MEDS: Aspirin Enteric Coated 81 MG Tablet PO SCH (08:23)
[2018-07-14] MEDS: Triamcinolone Acet 0.1% CRM 15 GM TUBE TP SCH ×2 (08:24→20:11)
--- NOTE | 2018-07-14 10:08 | Electrocardiograph Report ---
[place] [facility] Test Date: 2018-07-13 Pat Name: Connie Escoto Department: EXAM1 Room: 2S8 Gender: F [employer]: : 1950 Requested By: Karel Camargo Order Number: [id number] Reading MD: Jeremias Michele Measurements Intervals [place] Rate: 110 P: 33 MT: 146 QRS: -16 QRSD: 84 T: 77 QT: 307 QTc: 416 Interpretive Statements Sinus tachycardia Atrial premature complex LVH with secondary repolarization abnormality Anterior Q waves, possibly due to LVH Electronically Signed On 07-14-2018 10:06:49 EDT by Jeremias Michele
[2018-07-14] MEDS: cefTRIAXone 2,000 MG in Water for inj. (sterile) 20 ML 20 ML IVP SCH (10:49)
--- NOTE | 2018-07-14 17:05 | Oncology Inp Consult Note ---
<Rosy Hillman L - Last Filed: 07/15/18 15:34> Date of Encounter: 07/14/18 Assessment and Plan (1) Endometrial cancer Status: Acute Assessment and plan: Stage IIIC1 endometrioid adenocarcinoma, grade 2 followed at [facility]. S/P C5D1 of carboplatin/paclitaxel following completion of RT. Her treatment summary is listed below: 10/14/17 pelvic US: Fibroid uterus, thickened endometrial strip (18mm), ?left adnexal mass. 11/03/17 [facility], ECC: endometrioid adenocarcinoma, FIGO grade 2 12/30/17 Robotic hyst, BSO, LN ([place] on R, complete on L). Path: Stage IIIC1, FIGO grade 2, 66% myometrial invasion, +cervical involvement, +pelvic LN. Loss of MLH1, PMS2. MLH1 hypermethylated. TB recommends chemo + RT. Eligible for OPTEC (will consider), Lunchbox (declined) 02/04/18: C1D1 carbo/taxol 02/25/18: C2D1 03/18/18: C3D1 05/22/18: Completed RT (EBRT +BT) 06/17/18: C4D1 07/08/18: C5D1 Plan: Neutropenia noted, ANC 700 today-in setting of sepsis, Dr. Fine would like to add Neupogen daily until ANC >1.5k Monitor fever trend, if temperature > 100.4-panculture including BC from [place] Symptomatically appears to be improving, HR improving She has one cycle remaining, [facility] could consider addition of Neulasta on final regimen if they would like CT abdomen/pelvis without contrast reveals no acute findings in the abdomen/pelvis We will update [facility] patients admission and send records (2) UTI (urinary tract infection) Status: Acute Assessment and plan: UTI/sepsis Final urine culture reveals proteus mirabilis Currently on rocephin, sensitive, peripheral blood cultures pending-NGTD Management per hospitalist team Qualifiers: Urinary tract infection type: acute cystitis Hematuria presence: without hematuria Qualified Code(s): N30.00 - Acute cystitis without hematuria - Data of Consult Patient: known to practice within the last 3 years Consult date: 07/14/18 Requesting Physician: Emilia Ybarra MD Primary Care Provider: Ant Shaffer - Consult Narrative Reason for consult: Endometrial cancer History of present illness: Ms. Escoto is a 67-year-old female with past medical history significant for Arthritis, Asthma, Bronchitis, Chronic sinusitis, COPD (chronic obstructive pulmonary disease), [place] (dyspnea on exertion), Endometrial cancer, Fatigue, GERD (gastroesophageal reflux disease), Hemorrhoids, Hyperlipidemia, Hypertension, Impaired hearing, Liver disease, Lumbar degenerative disc disease, Lumbar radiculitis, Migraine, Obese, YOSSI (obstructive sleep apnea), Palpitations, Pleurisy, and Rectal bleeding. Known history of stage IIIC1 endometrioid adenocarcinoma, grade 2 followed at [facility]. S/P C5D1 of carboplatin/paclitaxel following completion of RT. Her treatment summary is listed below: 10/14/17 pelvic US: Fibroid uterus, thickened endometrial strip (18mm), ?left adnexal mass. 11/03/17 [facility], ECC: endometrioid adenocarcinoma, FIGO grade 2 12/30/17 Robotic hyst, BSO, LN ([place] on R, complete on L). Path: Stage IIIC1, FIGO grade 2, 66% myometrial invasion, +cervical involvement, +pelvic LN. Loss of MLH1, PMS2. MLH1 hypermethylated. TB recommends chemo + RT. Eligible for OPTEC (will consider), Lunchbox (declined) 02/04/18: C1D1 carbo/taxol 02/25/18: C2D1 03/18/18: C3D1 05/22/18: Completed RT (EBRT +BT) 06/17/18: C4D1 07/08/18: C5D1 She presented to [facility] ED for generalized weakness, suprapubic abdominal pain, and dysuria. Endorses subjective fever MAXIMUM TEMPERATURE 99.4 prior to presentation. She reports mild nausea, no vomiting, denies flank pain. CT of the abdomen and pelvis reveals No acute findings within the abdomen/pelvis, mild hepatic steatosis, punctate nonobstructing stone in the upper pole of left kidney, scattered colonic diverticula, small midline ventral hernia containing fat. UA positive for UTI. Final culture reveals proteus mirabilis. She was noted to have worsening neutropenia today with ANC 700. Past Med Surg Social Fam HX - Past Medical History Medical history: arthritis, cancer, COPD, hyperlipidemia, hypertension Additional medical history: Endometrial Cancer, LAP band surgery, sleep apnea Psychiatric history: no psych history - Past Surgical History Additional surgical history: knee and wrist surgery - Social History Smoking Status: Never smoker Smokeless Tobacco Status: No Alcohol use: none Drug use: none - Family History Mother History Unknown: Yes Medications and Allergies Aspirin [Lo-Dose Aspirin EC] 81 mg PO HS 08/28/17 [History] Rosuvastatin Calcium [Crestor] 5 mg PO DAILY 08/28/17 [History] Venlafaxine [Effexor] 75 mg PO DAILY 08/28/17 [History] Calcium Carbonate [Calcium] 600 mg PO DAILY 11/03/17 [History] Cholecalciferol (D-3) [Vitamin D] 1,000 unit PO DAILY 11/03/17 [History] Aripiprazole [Abilify] 5 mg PO DAILY 03/27/18 [History] Loperamide [Imodium] 2 - 4 mg PO BID PRN #60 capsule 04/15/18 [Rx] Omeprazole [PriLOSEC] 20 mg PO DAILY 06/11/18 [History] Ibuprofen [Motrin] 600 mg PO Q6HR PRN 07/13/18 [History] Metoclopramide [Reglan] 10 mg PO Q6H PRN 07/13/18 [History] Tramadol HCl [Ultram] 50 mg PO Q8H PRN 07/13/18 [History] Allergy/AdvReac Type Severity Reaction Status Date / Time No Known Allergies Allergy Verified 07/13/18 20:47 Constitutional: Present: chills, fatigue, fever(s), malaise, weakness Additional comments: subjective fevers/chills TMAX 99.4 per patient Eyes: Absent: change in vision Nose, mouth and throat: Absent: dysphagia, odynophagia Cardiovascular: Absent: chest pain Respiratory: Present: dyspnea on exertion Gastrointestinal: Present: nausea. Absent: abdominal pain, hematemesis, hematochezia, melena, vomiting Genitourinary: Present: dysuria, urinary frequency, urinary urgency. Absent: flank pain, hematuria Additional comments: pelvic discomfort Musculoskeletal: Absent: back pain Integumentary: Absent: rash, wounds Neurological: Absent: focal weakness, frequent falls Hematologic/Lymphatic: Present: as per HPI Oncology - Exam - Constitutional General appearance: cooperative, no acute distress, no febrile - Head Head exam: Present: atraumatic Additional comments: alopecia - ENT ENT exam: Present: mucous membranes moist, normal oropharynx - Respiratory Respiratory exam: Present: CTAB. Absent: respiratory distress - Cardiovascular Cardiovascular exam: Present: RRR, +S1, +S2 - GI/Abdominal GI/Abdominal exam: Present: normal bowel sounds, soft. Absent: tenderness - Extremities Exam Extremities exam: Present: normal inspection. Absent: calf tenderness - Neurological Exam Neurological exam: Present: alert, oriented X3, no focal deficits, strengths equal and symetr throughout - Psychiatric Psychiatric exam: Present: normal affect, normal mood - Skin Skin exam: Present: dry, intact, pallor, warm Consult Discharge Plan - Plan Referrals: Ant Shaffer DO [Primary Care Provider] - Inpatient Charges Provider: Dr. Ariella Fine <Ryan Fine - Last Filed: 07/15/18 18:15> Date of Encounter: 07/14/18 Time of Encounter: 17:07 - Data of Consult Requesting Physician: Emilia Ybarra MD Primary Care Provider: Ant Shaffer - Attending Attestation I examined this patient and my medical decision-making was reviewed with the Advanced Practice Nurse. I agree with the documented findings, disposition and treatment plan as described except to the extent set forth below. 1.Diagnosis: Endometrioid adenocarcinoma of the uterus, FIGO IIIC1, pT2 pN1, grade 2, 66% MMI, +LVSI Previous Treatment: 11/03/2017: Hysteroscopy with D&C 12/30/2017: Robotic hysterectomy, bilateral salpingo-oophorectomy, right pelvic sentinel lymph node biopsy, left pelvic node dissection 02/04/2018 - 03/18/2018: Carboplatin/Taxol 3 cycles 04/06/2018 - 05/13/2018: Pelvic radiotherapy, 4500 cGy in 25 fractions 05/19/2018 - 05/22/2018: Vaginal cuff brachytherapy at [facility], 1000 cGy in 2 fractions to 0.5 cm depth Plan is to give 3 more cycles of carbotaxol (sandwich approach) She completed cycle 5 on 07/08/2018 Subsequently hospitalized with neutropenia 2. Neutropenia neutrophil count 700. She is admitted with UTI sepsis. If necessary would consider Neupogen 300 g daily to her neutrophil count recovers more than 2000. Borderline thrombocytopenia. Mild anemia hemoglobin 10.2. Her hemoglobin is normal 3. UTI. Preliminary urine culture showed gram-negative luanne. She is on ceftriaxone 2 g IV every 24 hours Clinically she is stable. She should be able to receive cycle 6 when she gets better
--- NOTE | 2018-07-14 21:49 | Internal Med Progress Note ---
Hospitalist Progress Note - Encounter Date of Encounter: 07/14/18 Time of Encounter: 19:00 - Subjective Interval History: SUBJECTIVE: We admitted this 67-year-old woman with symptoms of generalized weakness, suprapubic abdominal pain and dysuria. She has been receiving chemo/radiation therapy for treatment of endometrial cancer (mostly at [facility]). She feels better. Stronger. Having less suprapubic abdominal pain and dysuria. On room air oxygen. Denies chest pain. Denies coughing and wheezing. She is able to walk on her own. OBJECTIVE: Skin: Free of rash and discoloration. ENMT: Oral/pharyngeal mucosa is normal in appearance. Eyes: Sclera is white. There is no discharge from eyes. Respiratory: Normal breath sounds; no crackles or wheezes. CV: Heart is regular; no gallop or murmur. GI: Abdomen is soft and not tender. There is mild tenderness in suprapubic area. Neuro: There is no focal deficits. ADDITIONAL DATA: WBC is 1.3 thousand; 2.6 thousand yesterday. She has about 60% of granulocytes. It was 80% of granulocytes yesterday. Hemoglobin is 10.2; 12.0 yesterday. Platelet count is 114,000; 141,000 yesterday. Electrolytes are normal. Creatinine is 0.56. ASSESSMENT AND PLAN: UTI/sepsis in a patient with underlying endometrial cancer (getting, chemo and radiation therapy). She is on IV Rocephin. Urine culture and blood cultures are pending. Sepsis observed at admission and basically subsided. Leukocytopenia. It is mostly granulocytopenia. I asked oncology to step in. Morbid obesity with BMI of 40.5. - Exam Vitals: Temp Pulse Resp BP Pulse Ox 98.0 F 109 16 170/96 96 07/14/18 19:40 07/14/18 19:40 07/14/18 19:40 07/14/18 19:40 07/14/18 19:40 Exam: xx - Assessment and Plan (1) Sepsis Current Visit: Yes Status: Acute (2) UTI (urinary tract infection) Current Visit: Yes Status: Acute (3) Endometrial cancer Current Visit: Yes Status: Acute (4) Leukocytopenia Current Visit: Yes Status: Acute (5) Morbid obesity Current Visit: Yes Status: Acute - Time Spent with Patient Total time spent is greater than 50% in coordination of care (as documented) at patient's floor/unit and/or counseling patient: 25 - 35 minutes Plan of Care Discussed with: patient Internal Medicine: Result - Labs CBC & Chem 7: 07/14/18 03:25 07/14/18 03:25 Labs: Short CBC 07/14/18 Range/Units 03:25 WBC 1.3 L (4.3-11.1) K/mcL Hgb 10.2 L D (11.5-15.4) g/dL Hct 30.0 L (35.3-44.9) % Plt Count 114 L (140-400) K/mcL Neutrophils # 0.7 L (1.6-8.9) K/mcL BMP 07/14/18 03:25 Sodium 134 L Potassium 3.9 Chloride 101 Carbon Dioxide 24 BUN 12 Creatinine 0.56 L Glucose 211 H Calcium 8.5 L Consult Discharge Plan - Plan Referrals: Ant Shaffer DO [Primary Care Provider] - (1) Sepsis Qualifiers: Sepsis type: Escherichia coli Qualified Code(s): A41.51 - Sepsis due to Escherichia coli [E. coli] (2) UTI (urinary tract infection) Qualifiers: Urinary tract infection type: acute cystitis Hematuria presence: without hematuria Qualified Code(s): N30.00 - Acute cystitis without hematuria (4) Leukocytopenia Qualifiers: Leukopenia type: unspecified Qualified Code(s): D72.819 - Decreased white blood cell count, unspecified
[2018-07-15] MEDS ORDERED: Melatonin 3 MG TABLET PO PRN (00:24)
[2018-07-15 04:23] LABS: Basophils % 0.2 %; Eosinophils # 0.3 K/mcL (0.0-0.6); Eosinophils % 6.1 %; Hemoglobin 10.7 g/dL (11.5-15.4); Immature Granulocytes % 0.6 % (0-4); Lymphocytes # 0.5 K/mcL (0.6-4.6); Lymphocytes % 9.5 %; Mean Corpuscular HGB Conc 33.4 g/dL (31.6-35.5); Mean Corpuscular Hemoglobin 30.7 pg (28.0-33.3); Mean Platelet Volume 10.5 fL (9.4-12.4); Monocytes # 0.2 K/mcL (0.0-1.3); Monocytes % 3.2 %; Neutrophils # 3.8 K/mcL (1.6-8.9); Platelet Count 134 K/mcL (140-400); Red Blood Count 3.48 M/mcL (3.82-4.97); Red Cell Distribution Width 13.3 % (11.5-14.5); Segmented Neutrophils % 80.4 %
[2018-07-15 04:32] LABS: BUN/Creatinine Ratio 18 (6-26); Blood Urea Nitrogen 13 mg/dL (8-23); Calcium 9.1 mg/dL (8.6-10.3); Carbon Dioxide 22 mEq/L (23-29); Chloride 101 mEq/L (98-107); Glucose 180 mg/dL (70-105); Osmolality,Calculated 285 (280-300); Potassium 3.7 mEq/L (3.5-5.1); Sodium 135 mEq/L (136-145); eGFR For Non-African Americans > 60 (> 60)
[2018-07-15] MEDS: *HR* Heparin 5,000 UNIT/ML VIAL SQ SCH ×2 (06:33→19:09)
[2018-07-15] MEDS: Triamcinolone Acet 0.1% CRM 15 GM TUBE TP SCH ×2 (08:36→21:34)
[2018-07-15] MEDS: Aspirin Enteric Coated 81 MG Tablet PO SCH (08:36)
--- NOTE | 2018-07-15 11:01 | Internal Med Progress Note ---
Hospitalist Progress Note - Encounter Date of Encounter: 07/15/18 Time of Encounter: 10:59 - Subjective Interval History: Patient seen and examined this morning at bedside. No acute overnight events. Some mild abdominal soreness. Denies any burning urination however does have frequent urination. Afebrile. Has mild difficulty breathing. Feeling much better than yesterday. Denies any chest pain or bowel complaints. - Exam Vitals: Temp Pulse Resp BP Pulse Ox 97.7 F 89 18 140/72 97 07/15/18 10:35 07/15/18 10:35 07/15/18 10:35 07/15/18 10:35 07/15/18 10:35 Exam: General: In no acute distress. Obese Respiratory exam: CTAB. no accessory muscle use, rales, rhonchi, wheezes Cardiovascular exam: RRR, +S1, +S2. no murmur, gallop, rubs. GI/Abdominal exam: Non-tender, Non-distended, normal bowel sounds, soft, no peritoneal signs. Extremities exam: full ROM, no pedal edema, warm, pulses palpable in b/l lower extremities. no calf tenderness Neurological exam: CN II-XII intact, AO X3, no focal deficits. parasthesia on both soles. Weak dorsiflexors b/l Skin exam: alopecia noted - Assessment and Plan (1) Sepsis Current Visit: Yes Status: Acute (2) Endometrial cancer Current Visit: Yes Status: Acute (3) UTI (urinary tract infection) Current Visit: Yes Status: Acute (4) Leukocytopenia Current Visit: Yes Status: Acute (5) Morbid obesity Current Visit: Yes Status: Acute - Summary of Assessment and Plan Summary of Assessment and Plan: UTI/sepsis - Urine cultures growing proteus - c/w IV Rocephin. f/u blood cultures. clinically improved Leukocytopenia - likely related to chemotherapy - s/p neupogen. WBC improved - Oncology following DVT ppx - heparin sc - Time Spent with Patient Total time spent is greater than 50% in coordination of care (as documented) at patient's floor/unit and/or counseling patient: Internal Medicine: Result - Labs CBC & Chem 7: 07/15/18 04:00 07/15/18 04:00 Labs: Short CBC 07/15/18 Range/Units 04:00 WBC 4.7 D (4.3-11.1) K/mcL Hgb 10.7 L (11.5-15.4) g/dL Hct 32.0 L (35.3-44.9) % Plt Count 134 L (140-400) K/mcL Neutrophils # 3.8 (1.6-8.9) K/mcL BMP 07/15/18 04:00 Sodium 135 L Potassium 3.7 Chloride 101 Carbon Dioxide 22 L BUN 13 Creatinine 0.72 Glucose 180 H Calcium 9.1 Consult Discharge Plan - Plan Referrals: Ant Shaffer DO [Primary Care Provider] - (1) Sepsis Qualifiers: Sepsis type: Escherichia coli Qualified Code(s): A41.51 - Sepsis due to Escherichia coli [E. coli] (3) UTI (urinary tract infection) Qualifiers: Urinary tract infection type: acute cystitis Hematuria presence: without hematuria Qualified Code(s): N30.00 - Acute cystitis without hematuria (4) Leukocytopenia Qualifiers: Leukopenia type: unspecified Qualified Code(s): D72.819 - Decreased white blood cell count, unspecified
[2018-07-15] MEDS: cefTRIAXone 2,000 MG in Water for inj. (sterile) 20 ML 20 ML IVP SCH (11:51)
--- NOTE | 2018-07-15 16:16 | Oncology Inp Progress Note ---
Date of Encounter: 07/15/18 (1) Endometrial cancer Current Visit: Yes Status: Acute Assessment and plan: Stage IIIC1 endometrioid adenocarcinoma, grade 2 followed at [facility]. S/P C5D1 of carboplatin/paclitaxel following completion of RT. Her treatment summary is listed below: 10/14/17 pelvic US: Fibroid uterus, thickened endometrial strip (18mm), ?left adnexal mass. 11/03/17 [facility], ECC: endometrioid adenocarcinoma, FIGO grade 2 12/30/17 Robotic hyst, BSO, LN ([place] on R, complete on L). Path: Stage IIIC1, FIGO grade 2, 66% myometrial invasion, +cervical involvement, +pelvic LN. Loss of MLH1, PMS2. MLH1 hypermethylated. TB recommends chemo + RT. Eligible for OPTEC (will consider), Lunchbox (declined) 02/04/18: C1D1 carbo/taxol 02/25/18: C2D1 03/18/18: C3D1 05/22/18: Completed RT (EBRT +BT) 06/17/18: C4D1 07/08/18: C5D1 Plan: Neutropenia noted, ANC 700 today-in setting of sepsis, Dr. Fnie would like to add Neupogen daily until ANC >1.5k Monitor fever trend, if temperature > 100.4-panculture including BC from [place] Symptomatically appears to be improving, HR improving She has one cycle remaining, [facility] could consider addition of Neulasta on final regimen if they would like CT abdomen/pelvis without contrast reveals no acute findings in the abdomen/pelvis We will update [facility] of patients admission and send records (2) UTI (urinary tract infection) Current Visit: Yes Status: Acute Assessment and plan: UTI/sepsis Final urine culture reveals proteus mirabilis Currently on rocephin, sensitive, peripheral blood cultures pending-NGTD Management per hospitalist team Qualifiers: Urinary tract infection type: acute cystitis Hematuria presence: without hematuria Qualified Code(s): N30.00 - Acute cystitis without hematuria Oncology: Obj Data - Labs CBC & Chem 7: 07/15/18 04:00 07/15/18 04:00 Consult Discharge Plan - Plan Referrals: Ant Shaffer DO [Primary Care Provider] -
[2018-07-15] MEDS: *HR* OxyCODONE/APAP 5/325 TABLET PO PRN (21:34)
[2018-07-16] MEDS: *HR* Heparin 5,000 UNIT/ML VIAL SQ SCH (06:06)
[2018-07-16] MEDS: Triamcinolone Acet 0.1% CRM 15 GM TUBE TP SCH (09:55)
[2018-07-16] MEDS: Aspirin Enteric Coated 81 MG Tablet PO SCH (09:55)
[2018-07-16] MEDS: Ketoconazole Shampoo 120 ML BOTTLE TP SCH (09:56)
[2018-07-16 11:30] VITALS: BP 157/66
[2018-07-16] MEDS: cefTRIAXone 2,000 MG in Water for inj. (sterile) 20 ML 20 ML IVP SCH (11:39)
--- NOTE | 2018-07-16 14:01 | Discharge Summary ---
- NOTES TO OUTPATIENT PROVIDER Notes to Outpatient Provider: Patient to finish seven-day course of antibiotics for UTI. Orders not resulted at time of discharge: Pending orders 07/13/18 08:15 Culture,Blood [] Stat Date of Encounter: 07/16/18 Time of Encounter: 12:36 - Discharge Diagnosis (1) Sepsis Priority: Primary Status: Acute Qualifiers: Sepsis type: Escherichia coli Qualified Code(s): A41.51 - Sepsis due to Escherichia coli [E. coli] (2) Endometrial cancer Priority: Secondary Status: Acute (3) UTI (urinary tract infection) Priority: Primary Status: Acute Qualifiers: Urinary tract infection type: acute cystitis Hematuria presence: without hematuria Qualified Code(s): N30.00 - Acute cystitis without hematuria (4) Leukocytopenia Priority: Primary Status: Acute Qualifiers: Leukopenia type: unspecified Qualified Code(s): D72.819 - Decreased white blood cell count, unspecified (5) Morbid obesity Priority: Secondary Status: Acute Hospital course: Ms. Escoto is a 67 year old female with PMHx of endometrial cancer, asthma, bronchitis, COPD, GERD, HTN, YOSSI came with generalized weakness and leukopnia with mild fever. She was found to have sepsis likely from UTI. Abdominal CT was unremarkable. She was started on rocephin. Sepsis resolved shortly. Urine culture grew proteus. Oncology was consulted. She received one dose of neupogen and her white count improved. Clinically she improved and was stable to be discharged to home to finish course of antibiotics for 7 days. She will continue to follow up with [facility] for continued treatment for endometrial cancer. Discharge discussed with: patient, nurse, social work, case management, immigration consultant - Time Spent with Patient Total time spent providing and/or coordinating discharge services: Time spent: Greater than 30 minutes (38) - Discharge Medications Prescriptions: New Ketoconazole Shampoo [Nizoral Shampoo] 1 appl TP 2XW 15 Days #1 bottle Triamcinolone Acet 0.1% CRM [Kenalog] 1 appl TP BID 7 Days #1 tube cephALEXin [Keflex] 500 mg PO BID 3 Days #6 capsule Continue Venlafaxine [Effexor] 75 mg PO DAILY Rosuvastatin Calcium [Crestor] 5 mg PO DAILY Aspirin [Lo-Dose Aspirin EC] 81 mg PO HS Calcium Carbonate [Calcium] 600 mg PO DAILY Cholecalciferol (D-3) [Vitamin D] 1,000 unit PO DAILY Aripiprazole [Abilify] 5 mg PO DAILY Loperamide [Imodium] 2 - 4 mg PO BID PRN #60 capsule PRN Reason: Diarrhea Omeprazole [PriLOSEC] 20 mg PO DAILY Metoclopramide [Reglan] 10 mg PO Q6H PRN PRN Reason: Nausea Tramadol HCl [Ultram] 50 mg PO Q8H PRN PRN Reason: Mild To Moderate Pain Ibuprofen [Motrin] 600 mg PO Q6HR PRN PRN Reason: Mild To Moderate Pain Home Medications: Aspirin [Lo-Dose Aspirin EC] 81 mg PO HS 08/28/17 [History] Rosuvastatin Calcium [Crestor] 5 mg PO DAILY 08/28/17 [History] Venlafaxine [Effexor] 75 mg PO DAILY 08/28/17 [History] Calcium Carbonate [Calcium] 600 mg PO DAILY 11/03/17 [History] Cholecalciferol (D-3) [Vitamin D] 1,000 unit PO DAILY 11/03/17 [History] Aripiprazole [Abilify] 5 mg PO DAILY 03/27/18 [History] Loperamide [Imodium] 2 - 4 mg PO BID PRN #60 capsule 04/15/18 [Rx] Omeprazole [PriLOSEC] 20 mg PO DAILY 06/11/18 [History] Ibuprofen [Motrin] 600 mg PO Q6HR PRN 07/13/18 [History] Metoclopramide [Reglan] 10 mg PO Q6H PRN 07/13/18 [History] Tramadol HCl [Ultram] 50 mg PO Q8H PRN 07/13/18 [History] Ketoconazole Shampoo [Nizoral Shampoo] 1 appl TP 2XW 15 Days #1 bottle 07/16/18 [Rx] Triamcinolone Acet 0.1% CRM [Kenalog] 1 appl TP BID 7 Days #1 tube 07/16/18 [Rx] cephALEXin [Keflex] 500 mg PO BID 3 Days #6 capsule 07/16/18 [Rx] Allergies/Adverse Reactions: Allergy/AdvReac Type Severity Reaction Status Date / Time No Known Allergies Allergy Verified 07/13/18 20:47 Date of admission: 07/14/18 12:47 Primary care physician: Ant Shaffer Consults: 07/13/18 10:37 Consult to Nutrition [CONS] Routine Comment: Consulting Provider: NUTRITION Reason for Dietary Consult: PO Supplementation 07/16/18 11:37 Consult to Occupational Therapy [CONS] Routine Comment: Evaluate, develop and implement POC Reason for Consult: Eval for potential DC needs Does patient have active BEDREST order?: No Is patient medically & hemodynamically stable?: Yes Patient assessed for mobility or mobilized this visit?: Yes Consult to Physical Therapy [CONS] Routine Comment: Evaluate, develop and implement POC Reason for Consult: Eval for potential DC needs Does patient have active BEDREST order?: No Is patient medically & hemodynamically stable?: Yes Patient assessed for mobility or mobilized this visit?: Yes Discharging clinician: Urvashi Richardson - Constitutional Vitals: Temp Pulse Resp BP Pulse Ox 98.1 F 88 17 157/66 98 07/16/18 11:21 07/16/18 11:21 07/16/18 11:21 07/16/18 11:21 07/16/18 11:21 Exam: General: In no acute distress. Obese Respiratory exam: CTAB. no accessory muscle use, rales, rhonchi, wheezes Cardiovascular exam: RRR, +S1, +S2. no murmur, gallop, rubs. GI/Abdominal exam: Non-tender, Non-distended, normal bowel sounds, soft, no peritoneal signs. Extremities exam: full ROM, no pedal edema, warm, pulses palpable in b/l lower extremities. no calf tenderness Neurological exam: CN II-XII intact, AO X3, no focal deficits. parasthesia on both soles. Weak dorsiflexors b/l Skin exam: alopecia noted - Patient Status Disposition: Home, Self-Care Condition: Fair - Discharge Instructions Instructions: Cephalexin (By mouth), Triamcinolone (On the skin), Ketoconazole (On the skin), Urinary Tract Infection in Women (DC), Sepsis (DC) Follow Up With: Ant Shaffer DO [Primary Care Provider] - - Diet and Activity Activity: increase activity as tolerated
[2018-07-16 15:06] LABS: Basophils % 0.4 %; Eosinophils # 0.2 K/mcL (0.0-0.6); Eosinophils % 3.1 %; Hematocrit 33.1 % (35.3-44.9); Immature Granulocytes % 6.3 % (0-4); Lymphocytes # 0.6 K/mcL (0.6-4.6); Lymphocytes % 12.5 %; Mean Corpuscular HGB Conc 33.2 g/dL (31.6-35.5); Mean Corpuscular Hemoglobin 31.3 pg (28.0-33.3); Mean Platelet Volume 10.4 fL (9.4-12.4); Monocytes # 0.5 K/mcL (0.0-1.3); Monocytes % 10.2 %; Neutrophils # 3.2 K/mcL (1.6-8.9); Platelet Count 164 K/mcL (140-400); Red Blood Count 3.52 M/mcL (3.82-4.97); Red Cell Distribution Width 13.7 % (11.5-14.5); Segmented Neutrophils % 67.5 %
[2018-07-16 15:36] LABS: Large Platelets Present (Not Present); Platelet Estimate Normal (Normal)
== END 2018-07-16 14:19 | disposition home or self-care (01) | DRG 872 ==
LOC: EMEROOARM 07:04 → 2SOUTHHOLD 07:04 → SUATTDRO 07-14 12:47
PROVIDERS: ADMIT Internal Medicine; ATTEND Internal Medicine